=== PATIENT | male | born 1955 | race Caucasian/White ===

== ENCOUNTER → 2024-05-07 07:25 | Outpatient (REF) | payer MEDICARE, OTHER, SELFPAY | LOC: RCS 07:25 | PROVIDERS: ATTENDING PHYSICIAN Physician Assistant Medical; FAMILY PHYSICIAN Internal Medicine; REFERRING PHYSICIAN Internal Medicine Cardiovascular Disease | DX: I48.91 Unspecified atrial fibrillation (principal) | CPT/HCPCS: 93306 ==

== ENCOUNTER → 2025-05-06 10:58 | Outpatient (REF) | payer MEDICARE, OTHER, SELFPAY | LOC: HWRCS 10:58 | PROVIDERS: ATTENDING PHYSICIAN Internal Medicine Cardiovascular Disease; FAMILY PHYSICIAN Internal Medicine | DX: I48.91 Unspecified atrial fibrillation (principal) | CPT/HCPCS: 93306 ==

== ENCOUNTER 2025-07-13 19:23 | Emergency (ER) | payer MEDICARE, OTHER, SELFPAY ==
[2025-07-13 19:31] VITALS: BMI 40.6
[2025-07-13 19:33] VITALS: BP 113/71
--- NOTE | 2025-07-13 19:44 | ED.GENMED ---
History of Present Illness
<HUE Urias - Last Filed: 07/13/25 22:26>
General
Chief Complaint: Fainting/Passed Out
Source: patient
Exam Limitations: none
Time Seen by Provider: 07/13/25 19:32
Nursing documentation reviewed up to this point in time: agreed with
History of Present Illness
History of Present Illness:
70 yr old male with past with a history of A-fib, hypertension presents to the ER for evaluation. Prior to arrival patient was sitting at his desk and suddenly became diaphoretic and became pale. Patient took his pulse and it felt irregular he
reports this felt exactly what he typically feels when he goes into A-fib. is at bedside is a physician reports that she took his blood pressure and it was 73/30 however after 5 minutes his blood pressure increased to 117/60. The entire
episode lasted 15 minutes. He had no associated shortness of breath or chest pain with symptoms. He is on Eliquis 5 mg twice daily in addition to other medications and has not skipped a dose of Eliquis. 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
[facility] ( Dr. Landa ) however he is also followed by Dr. Hollis here.
reports he had his last cardiac ablation in May 2023 and has not been in A-fib since then. He did have an echo done here in May however they have not seen the report.
Past History
<HUE Urias - Last Filed: 07/13/25 22:26>
Past History
ED Past Medical History: Arrthythmia, HTN and Other (Gout)
ED Past Surgical History: Orthopedic
Social History
Tobacco: Non-smoker
Alcohol: None
Drug: None
Personal:
Living: with family
Phy Exam
<HUE Urias - Last Filed: 07/13/25 22:26>
General Physical Exam
General Presentation: no apparent distress
General age: appears stated age
General Skin: warm and dry
General Habitus: normal
General Mental: alert
General Hydration: appears well hydrated
Cardiovascular Exam
Cardiovascular Exam: regular rate/rhythm, no murmur and normal peripheral pulses
Pulmonary Exam
Pulmonary Exam: lungs clear and no respiratory distress
Neurological Exam
Neurological Exam: alert and oriented x3
Musculoskeletal Exam
Musculoskeletal Exam: full ROM
Skin Exam
Skin Exam: normal color and warm/dry
Psychiatric Exam
Psychiatric Exam: normal mood/affect
Course
<HUE Urias - Last Filed: 07/13/25 22:26>
Orders/Labs/Results
Orders:
Orders
07/13/25 19:44
Electrocardiogram (*1) Stat
Reason for Study: Other
Other Reason for Exam: chest pain
Cardiac Monitoring- Treatment ONCE
EKG- Treatment ONCE
IV Insert/Care/Rem.- Treatment PRN
07/13/25 19:47
Complete Blood Count/With Diff Urgent
Comprehensive Metabolic Panel Urgent
Magnesium Urgent
Comment: ADD ON
TSH Urgent
07/13/25 21:16
UA Reflex to Culture [Urinalysis Reflex To Culture] Urgent
Date Specimen was Collected: 07/13/25
Time Specimen was Collected: 21:14
Urine Microscopic Reflex Cult Urgent
07/13/25 21:23
Urine Osmolality Random [Osmolality, Random Urine] Urgent
Date Specimen was Collected: 07/13/25
Time Specimen was Collected: 21:16
Urine Sodium Urgent
Date Specimen was Collected: 07/13/25
Time Specimen was Collected: 21:16
Abnormal Lab Results
07/13/25 07/13/25
19:47 21:16
RBC 3.80 L 10^6/uL
(4.70-6.10)
Hgb 12.2 L g/dL
(13.0-18.0)
Hct 35.3 L %
(39.0-52.0)
MCH 32.1 H pg
(27.0-31.0)
Abs Immat Gran (auto) 0.1 H 10^3/uL
(0-0.05)
Absolute Monos (auto) 1.0 H 10^3/uL
(0.1-0.6)
Immature Gran % 0.9 H %
(0-0.5)
Lymphocytes % 19.6 L %
(20.5-51.1)
Monocytes % 10.9 H %
(1.7-9.3)
Sodium 126 L mmol/L
(135-145)
Chloride 95 L mmol/L
(98-107)
Glucose 187 H mg/dl
(70-99)
Urine Bacteria (Reflex) Few A
(Negative)
Urine Albumin (Reflex) 2+ A
(Neg - Trace)
07/13/25 19:47
07/13/25 19:47
Vital Signs
Initial and Last Documented VS:
Initial Vital Signs
Temp Pulse Resp Pulse Ox
98.2 F 84 14 97
07/13/25 19:31 07/13/25 19:31 07/13/25 19:31 07/13/25 19:31
Last Documented Vital Signs
Temp Pulse Resp BP Pulse Ox
98.2 F 77 19 97/54 96
07/13/25 19:31 07/13/25 22:15 07/13/25 22:15 07/13/25 22:00 07/13/25 22:15
Sales Account Specialist consulted with Physician
Sales Account Specialist consulted with physician?: Yes
Name of Physician Consulted: Ari
<Kwan Chapman, DO - Last Filed: 07/14/25 01:11 EDT>
Orders/Labs/Results
Orders:
Orders
07/13/25 19:44
Electrocardiogram (*1) Stat
Reason for Study: Other
Other Reason for Exam: chest pain
Cardiac Monitoring- Treatment ONCE
EKG- Treatment ONCE
IV Insert/Care/Rem.- Treatment PRN
07/13/25 19:47
Complete Blood Count/With Diff Urgent
Comprehensive Metabolic Panel Urgent
Magnesium Urgent
Comment: ADD ON
TSH Urgent
07/13/25 21:16
UA Reflex to Culture [Urinalysis Reflex To Culture] Urgent
Date Specimen was Collected: 07/13/25
Time Specimen was Collected: 21:14
Urine Microscopic Reflex Cult Urgent
07/13/25 21:23
Urine Osmolality Random [Osmolality, Random Urine] Urgent
Date Specimen was Collected: 07/13/25
Time Specimen was Collected: 21:16
Urine Sodium Urgent
Date Specimen was Collected: 07/13/25
Time Specimen was Collected: 21:16
Abnormal Lab Results
07/13/25 07/13/25
19:47 21:16
RBC 3.80 L 10^6/uL
(4.70-6.10)
Hgb 12.2 L g/dL
(13.0-18.0)
Hct 35.3 L %
(39.0-52.0)
MCH 32.1 H pg
(27.0-31.0)
Abs Immat Gran (auto) 0.1 H 10^3/uL
(0-0.05)
Absolute Monos (auto) 1.0 H 10^3/uL
(0.1-0.6)
Immature Gran % 0.9 H %
(0-0.5)
Lymphocytes % 19.6 L %
(20.5-51.1)
Monocytes % 10.9 H %
(1.7-9.3)
Sodium 126 L mmol/L
(135-145)
Chloride 95 L mmol/L
(98-107)
Glucose 187 H mg/dl
(70-99)
Urine Bacteria (Reflex) Few A
(Negative)
Urine Albumin (Reflex) 2+ A
(Neg - Trace)
07/13/25 19:47
07/13/25 19:47
Vital Signs
Initial and Last Documented VS:
Initial Vital Signs
Temp Pulse Resp Pulse Ox
98.2 F 84 14 97
07/13/25 19:31 07/13/25 19:31 07/13/25 19:31 07/13/25 19:31
Last Documented Vital Signs
Temp Pulse Resp BP Pulse Ox
98.2 F 77 19 97/54 96
07/13/25 19:31 07/13/25 22:15 07/13/25 22:15 07/13/25 22:00 07/13/25 22:15
<HUE Urias - Last Filed: 07/13/25 22:26>
MDM/Problems Addressed
Differential Diagnosis Includes:
Not limited to near syncope, arrhythmia, A-fib, dehydration, electrolyte abnormality
MDM/Problems Addressed:
As documented patient is a 70-year-old male followed by [facility]ology as well as [facility] cardiology with history of A-fib prior cardiac ablation in 2022 and has not been in A-fib since. He presented for an episode of lightheadedness was
pale and blood pressure was 70s over 30s as per who is a physician. As documented this episode lasted for 15 minutes. He felt that he was in A-fib as this is how he felt when he was in A-fib previously. He presented in normal sinus rhythm no
complaints of chest pain or shortness of breath. He has been normal sinus rhythm here in the ER throughout the ER stay. He has a history of hyponatremia sodium is 126 he has normal potassium magnesium and renal function. He is on Lasix for
previous history of CHF. He he is awake alert no acute distress. I did review prior echo from April 2025. Case reviewed with cardiology . He has an appointment with him in the next several weeks.
Cardiology did recommend admission overnight for OBS however patient would like to go home.
He is well-appearing and remains in NSR
PT was eval by Dr. Chapman.
Patient does wish to continue to go home. Will have patient follow-up with cardiology in the next several days will likely need a Holter monitor. Will have him call Tuesday for appointment. In addition we will refer to nephrology for hyponatremia
as well as family doctor will need repeat labs.
Discussed to return if any worsening of symptoms
Chronic conditions affecting care:
afib /hyponatremia
<HUE Urias - Last Filed: 07/13/25 22:26>
*Pulse Oximetry
SaO2: 97
Oxygen Mode of Delivery: Room air
Patient hypoxic: no
*EKG
Interpreted by ED Provider?: Yes
Comparison EKG: no changes
Heart Rate: 83
Rate: normal
Rhythm: sinus
Ischemia: non-specific ST changes
*Critical Care Note
Total Time (30-74mins, 75-104mins- exclusive of procedures): Not Applicable
Data Reviewed
Review of Other/Old Records Reveals: Labs and Radiology Studies
Source: patient and family
<HUE Urias - Last Filed: 07/13/25 22:26>
Patient Management
Discussion with other providers: Guest Services Representative (DR Hollis /DR Graham )
ED Attending Note
<HUE Urias - Last Filed: 07/13/25 22:26>
-
Portions of this chart may have been created with voice recognition software.� Occasional wrong word or��sound alike� substitutions may have occurred due to the inherent limitations of voice recognition software.
<Kwan Chapman, DO - Last Filed: 07/14/25 01:11 EDT>
ED Attending Note
Patient seen and examined by attending physician: Yes
ED Attending Note:
I have reviewed and agree with history treatment plan by HUE Aquino. My exam revealed
Physical Exam
General: no apparent distress, not acutely ill
Neck: supple. no meningeal signs. normal posterior pharynx
Heart: s1/s2 regular rate and rhythm, no murmur. equal radial
pulses.
HEENT: Pupils equal round reactive to light, EOMI
Lungs: no acute respiratory distress. clear bilaterally
Abdomen: normal bowel sounds. not tender. no CVAT
Neuro: alert and oriented. no focal neurological deficits cranial nerves II through XII intact
Skin: no rash
Psychiatric: well kept. interactive and cooperative
Extremities: no edema. no calf tenderness. negative homans. good distal pulses
Physical Exam
General: no apparent distress, not acutely ill
Neck: supple. no meningeal signs. normal posterior pharynx
Heart: s1/s2 regular rate and rhythm, no murmur. equal radial
pulses.
HEENT: Pupils equal round reactive to light, EOMI
Lungs: no acute respiratory distress. clear bilaterally
Abdomen: normal bowel sounds. not tender. no CVAT
Neuro: alert and oriented. no focal neurological deficits cranial nerves II through XII intact
Skin: no rash
Psychiatric: well kept. interactive and cooperative
Extremities: no edema. no calf tenderness. negative homans. good distal pulses
70-year-old male with near syncope episode, possibly paroxysmal atrial fibrillation as cause. He feels well at this time. Offered admission, however he declines. He will follow-up with Dr. Hollis.
Discharge Plan
Departure
Patient Disposition: Home (Routine Discharge)
Date of Disposition: 07/13/25
Time of Disposition: 22:18
Patient with high blood pressure during this ER visit?: No
Condition: Fair
Covid-19: Not Applicable
Discharge Problem:
Near syncope, Acute hyponatremia
Instructions: Near Fainting (DC), Hyponatremia
Prescriptions:
No Action
allopurinol 100 MG tablet
200 mg PO DAILY
metformin 500 MG tablet
500 mg PO BID@0800,1700 Qty: 60 1RF
spironolactone 12.5 MG tablet
12.5 mg PO DAILY Qty: 30 1RF
furosemide 20 MG tablet
20 mg PO DAILY Qty: 30 1RF
Eliquis 5 MG tablet
5 mg PO BID Qty: 60 1RF
cholecalciferol (vitamin D3) 1,000 UNITS tablet
4,000 units PO DAILY
magnesium 250 MG tablet
250 mg PO DAILY
irbesartan 300 MG tablet
300 mg PO DAILY
Men's 50 Plus Daily Formula 1 EACH tablet
1 ea PO DAILY
sotalol 120 MG tablet
120 mg PO BID Qty: 60 3RF
sotalol
120 mg PO BID
amlodipine
5 mg BID
Ozempic 2 mg/dose (8 mg/3 mL) Pen Injector
2 mg SC
Referrals:
Chad Fields DO [Family Provider, Internal Medicine]
Tyrell Graham MD [Active, Nephrology]
Jeferson Hollis MD [Active, Cardiology]
Activity Restrictions/Additional Instructions:
As discussed please call cardiology Tuesday for a sooner appointment you will likely need a Holter monitor
In addition please follow-up your family doctor/nephrology for reevaluation of your low sodium. This lab will need to be rechecked next week.
Return if any worsening of symptoms including palpitations chest pain shortness of breath lightheaded dizziness or any further concerns.
Interventions
Interventions:
*Risk Screen - Suicide Last Done: 07/13/25 19:31
*General Assessment Last Done: 07/13/25 19:31
*Neglect/Abuse Screening Last Done: 07/13/25 19:31
*ED- Fall Risk Assessment Last Done: 07/13/25 19:31
*ED COVID-19 Vaccine History Last Done: 07/13/25 19:31
*ED Influenza Vaccine History Last Done: 07/13/25 19:31
*Nursing Disposition Last Done: 07/13/25 22:30
ED- Cardiac Assessment Last Done: 07/13/25 20:09
ED- Neurological Assessment Last Done: 07/13/25 20:09
Discharge Date and Time
Discharge Date/Time: 07/13/25 22:38
Print Language: MAURITANIAN
[2025-07-13 19:56] LABS: Hematocrit 35.3 % (39.0-52.0); Hemoglobin 12.2 g/dL (13.0-18.0); Mean Corp Hgb Conc. 34.6 g/dL (33.0-37.0); Mean Corpuscular Volume 92.9 fL (80.0-94.0); Nucleated Red Blood Cells % 0 % (-); Platelet Count 197 10^3/uL (130-400); Red Cell Dist. Width 13.2 % (11.5-14.5)
[2025-07-13 20:00] VITALS: BP 123/76
[2025-07-13 20:16] LABS: ALT (SGPT) 18 U/L (0-50); AST (SGOT) 20 U/L (17-59); Albumin 3.9 g/dl (3.5-5.0); Alkaline Phosphatase 48 U/L (38-126); Blood Urea Nitrogen 16 mg/dl (9-20); Calcium 9.3 mg/dl (8.4-10.2); Carbon Dioxide 23 mmol/L (22-30); Chloride 95 mmol/L (98-107); Estimated Creatinine Clearance 121 ml/min; Glucose 187 mg/dl (70-99); Potassium 3.6 mmol/L (3.5-5.1); Sodium 126 mmol/L (135-145); Total Protein 6.4 g/dl (6.3-8.2); eGFR > 60.00
[2025-07-13 20:37] LABS: Magnesium 1.8 mg/dl (1.6-2.3)
[2025-07-13 21:08] LABS: TSH 3.70 uIU/ml (0.47-4.68)
[2025-07-13 21:15] VITALS: BP 106/65
[2025-07-13 21:29] LABS: Urine Character Clear (Clear)
[2025-07-13 22:00] VITALS: BP 97/54
[2025-07-13 22:21] LABS: Urine Red Blood Cell 0-2 /HPF (0-2); Urine White Cell 0-2 /HPF (0-5)
== END 2025-07-13 22:38 | disposition home or self-care (01) ==
LOC: EMR 19:23
PROVIDERS: Nurse Practitioner; EMERGENCY PHYSICIAN Emergency Medicine; FAMILY PHYSICIAN Internal Medicine
DX: R55 Syncope and collapse (principal); E87.1 Hypo-osmolality and hyponatremia; I48.91 Unspecified atrial fibrillation; I11.0 Hypertensive heart disease with heart failure; I50.9 Heart failure, unspecified; M10.9 Gout, unspecified; Z79.01 Long term (current) use of anticoagulants
CPT/HCPCS: 99284; 80053; 81003; 81015; 83735; 83935; 84300; 84443; 85025; 93005